=== PATIENT | female | born 1995 | race Caucasian/White ===

== ENCOUNTER 2016-07-05 10:34 | Emergency (ER) | payer BC ==
[~2016-07-05] VITALS: Ht 170.2 cm; Wt 65.0 kg
[~2016-07-05 10:34] MED LIST: AMOXICILLIN500 MG PO; CLARITIN10 MG PO; CLONIDINE0.1 MG PO; MAGNESIUM500 M2 PO; NORVASC2.5 MG PO; PROGRAF1 MG PO; RAPAMUNE1 MG PO; VALTREX500 MG PO
[2016-07-05 11:30] LABS: INFLUENZA A NONE DETECTED (NONE DETECT); INFLUENZA B NONE DETECTED (NONE DETECT)
[2016-07-05] MEDS ORDERED: LEVAQUIN500 MG PO (12:26)
[2016-07-05 12:36] VITALS: BP 138/91
== END 2016-07-05 12:37 | disposition home or self-care (01) | DRG 153 ==
LOC: ED 10:34
PROVIDERS: Emergency Medicine
DX: J06.9 Acute upper respiratory infection, unspecified (principal); Z94.1 Heart transplant status; M41.9 Scoliosis, unspecified

== ENCOUNTER 2016-07-31 10:47 | Emergency (ER) | payer BC ==
[~2016-07-31] VITALS: Ht 170.2 cm; Wt 64.5 kg
[~2016-07-31 10:47] MED LIST changes: +LEVAQUIN500 MG PO
[2016-07-31 11:20] LABS: ALBUMIN 4.4 g/dL (3.2-5.0); ALKALINE PHOSPHATASE 87 u/l (38-126); ANION GAP 15 (6-22 (CALC)); BILIRUBIN, TOTAL 0.7 mg/dL (0.0-1.4); BUN 15 mg/dL (7-17); BUN/CREATININE RATIO 19 (12-20 (CALC)); CALCIUM 9.5 mg/dL (8.4-10.2); CARBON DIOXIDE 22 mmol/l (22-30); CHLORIDE 105 mmol/l (95-108); CREATININE 0.8 mg/dL (0.5-1.0); GFR > 60 ML/MIN (>=60 (CALC)); GFR FOR AFR.AMER. > 60 ML/MIN (>=60 (CALC)); GLUCOSE 90 mg/dL (65-105); POTASSIUM 4.1 mmol/l (3.5-5.1); SGOT/AST 37 u/l (14-36); SGPT/ALT 34 u/l (9-52); SODIUM 138 mmol/l (137-146); TOTAL PROTEIN 7.9 g/dL (6.3-8.2)
[2016-07-31 11:24] LABS: HEMATOCRIT 39.5 % (37.0-47.0); HEMOGLOBIN 13.1 g/dl (12.0-16.0); IMMATURE GRANULOCYTES 0.3 % (0.0-1.0); MEAN CELL VOLUME 81.3 fL CALC (80.0-100.0); MEAN CORPUSCULAR HGB CONC 33.2 g/L CALC (32.0-36.0); NEUT# 6.53 thou/uL (2.00-7.15); RED BLOOD COUNT 4.86 mill/uL (4.20-5.60); RED CELL DISTRI WIDTH 13.5 % (11.5-15.5)
[2016-07-31 11:32] LABS: MYOGLOBIN 22 ng/mL (0 - 62)
[2016-07-31 13:58] LABS: URINE BILIRUBIN - DIPSTICK NEGATIVE (NEGATIVE); URINE BLOOD DIPSTICK SMALL (NEGATIVE); URINE CLARITY CLEAR; URINE COLOR YELLOW; URINE GLUCOSE - DIPSTICK NEGATIVE (NEGATIVE); URINE KETONE NEGATIVE (NEGATIVE); URINE LEUK ESTERASE NEGATIVE (NEGATIVE); URINE NITRITE - DIPSTICK NEGATIVE (Negative); URINE PH 6.5 (4.5-8.0); URINE PROTEIN - DIPSTICK NEGATIVE (NEG-TRACE); URINE UROBILINOGEN - DIPSTICK 0.2 E.U./dL (0.2)
[2016-07-31 13:59] LABS: BARBITURATES NEGATIVE (NEGATIVE); COCAINE NEGATIVE (NEGATIVE); METHADONE NEGATIVE (NEGATIVE); OXCYCODONE NEGATIVE (NEGATIVE); TETRAHYDROCANNABIONOL NEGATIVE (NEGATIVE); TRICYLIC ANTIDEPRESSANTS NEGATIVE (NEGATIVE); URINE SQUAMOUS EPITHELIAL CELL FEW EPI/hpf (0-FEW)
[2016-07-31 18:16] VITALS: BP 134/91
== END 2016-07-31 18:16 | DRG 312 ==
LOC: ED 10:47 → ED-I 13:48 → ED 18:16
PROVIDERS: Emergency Medicine
DX: R55 Syncope and collapse (principal); J18.9 Pneumonia, unspecified organism; Z94.1 Heart transplant status; M41.9 Scoliosis, unspecified

== ENCOUNTER 2017-09-23 20:02 | Emergency (ER) | payer BC ==
[~2017-09-23] VITALS: Ht 170.2 cm; Wt 69.0 kg
[2017-09-23] MEDS ORDERED: LOSARTAN POT100 MG PO (20:31)
[2017-09-23 23:00] VITALS: BP 150/87
== END 2017-09-23 23:00 | DRG 125 ==
LOC: ED 20:02
DX: S01.111A Laceration without foreign body of right eyelid and periocular area, initial encounter (principal); V86.69XA Passenger of other special all-terrain or other off-road motor vehicle injured in nontraffic accident, initial encounter; Y92.828 Other wilderness area as the place of occurrence of the external cause

== ENCOUNTER 2019-03-05 12:56 | Emergency (ER) | payer BC ==
[~2019-03-05] VITALS: Ht 170.2 cm; Wt 70.0 kg
[~2019-03-05 12:56] MED LIST changes: +COZAAR100 MG PO
[2019-03-05] MEDS ORDERED: PRAVASTATIN SOD20 MG PO (13:14)
[2019-03-05] MEDS ORDERED: OSCAL 500/1 TAB PO (13:16)
[2019-03-05] MEDS ORDERED: XYZAL ALLERGY 245 MG PO (13:17)
[2019-03-05 14:11] LABS: HEMATOCRIT 44.5 % (37.0-47.0); HEMOGLOBIN 14.2 g/dl (12.0-16.0); IMMATURE GRANULOCYTES 0.2 % (0.0-5.0); MEAN CELL VOLUME 81.7 fL CALC (80.0-100.0); MEAN CORPUSCULAR HGB 26.1 pG CALC (26.0-32.0); MEAN CORPUSCULAR HGB CONC 31.9 g/L CALC (32.0-36.0); NEUT# 3.12 thou/uL (2.00-7.15); RED BLOOD COUNT 5.45 mill/uL (4.20-5.60); RED CELL DISTRI WIDTH 13.8 % (11.5-15.5)
[2019-03-05 14:24] LABS: ALBUMIN 4.7 g/dL (3.2-5.0); ALKALINE PHOSPHATASE 85 u/l (38-126); ANION GAP 18 (6-22 (CALC)); BILIRUBIN, TOTAL 0.7 mg/dL (0.0-1.4); BUN 18 mg/dL (7-17); BUN/CREATININE RATIO 18 (12-20 (CALC)); CARBON DIOXIDE 22 mmol/l (22-30); CHLORIDE 102 mmol/l (95-108); GFR > 60 ML/MIN (>=60 (CALC)); GFR FOR AFR.AMER. > 60 ML/MIN (>=60 (CALC)); SGOT/AST 41 u/l (14-36); SODIUM 137 mmol/l (137-146); TOTAL PROTEIN 8.5 g/dL (6.3-8.2)
[2019-03-05 14:31] LABS: URINE BILIRUBIN - DIPSTICK NEGATIVE (NEGATIVE); URINE BLOOD DIPSTICK LARGE (NEGATIVE); URINE COLOR YELLOW; URINE GLUCOSE - DIPSTICK NEGATIVE (NEGATIVE); URINE KETONE NEGATIVE (NEGATIVE); URINE LEUK ESTERASE NEGATIVE (NEGATIVE); URINE NITRITE - DIPSTICK NEGATIVE (Negative); URINE PROTEIN - DIPSTICK NEGATIVE (NEG-TRACE); URINE UROBILINOGEN - DIPSTICK 0.2 E.U./dL (0.2)
[2019-03-05 14:38] LABS: URINE RBC TNTC RBC/hpf (0-5); URINE SQUAMOUS EPITHELIAL CELL FEW EPI/hpf (0-FEW)
[2019-03-05] MEDS ORDERED: TAM75CAP PO (14:59)
[2019-03-05 15:01] VITALS: BP 118/82
== END 2019-03-05 15:06 | disposition home or self-care (01) | DRG 195 ==
LOC: ED 12:56
PROVIDERS: Emergency Medicine
DX: J10.1 Influenza due to other identified influenza virus with other respiratory manifestations (principal)